=== PATIENT | male | born 1970 | race Caucasian/White ===

== ENCOUNTER 2022-03-14 21:49 | Emergency (ER) | payer MEDICAID, SELFPAY ==
--- NOTE | ~2022-03-14 | XR_ITS ---
EXAMINATION: XR CHEST CLINICAL INFORMATION: Chest pain. COMPARISON: None TECHNIQUE: Frontal view of the chest was obtained. FINDINGS: No significant abnormality is noted involving the heart, lungs, mediastinum, bony thorax or soft tissues. XR/XR chest 1V IMPRESSION: No acute cardiopulmonary process.
--- NOTE | 2022-03-14 21:51 | ECG_ITS ---
Test Reason : CHEST PAIN Blood Pressure : / mmHG Vent. Rate : 093 BPM Atrial Rate : 093 BPM P-R Int : 184 ms QRS Dur : 086 ms QT Int : 352 ms P-R-T Axes : 031 -08 -04 degrees QTc Int : 437 ms Normal sinus rhythm Cannot rule out Anterior infarct , age undetermined Abnormal ECG No previous ECGs available Referred By: Generic ED Physician Electronically Signed By:Joey Maddox
[2022-03-14 21:52] VITALS: BP 133/82; PULSE 89; RESP 18; TEMP 36.4; O2SAT 99; BMI 27.9
[2022-03-14 22:08] LABS: MANUAL DIFF FLAG NO
[2022-03-14 22:10] LABS: Basophils Percent Auto 0.5 % (0-2); Eosinophils Absolute Auto 0.2 X10*3/uL (0.0-0.4); Eosinophils Percent Auto 2.2 % (0-4); Hematocrit 41.2 % (42.0-52.0); Hemoglobin 14.8 g/dl (14.0-18.0); Imm Gran Abs Auto 0.06 X10*3/uL (0.00-0.03); Imm Gran Pct Auto 0.8 % (0.0-0.4); Lymphocytes Absolute Auto 3.1 X10*3/uL (1.2-4.9); Mean Corpuscular HGB Conc 35.9 g/dl (31.0-36.0); Mean Corpuscular Hemoglobin 32.2 pg (27.0-33.0); Mean Corpuscular Volume 89.6 fL (80.0-98.0); Monocytes Absolute Auto 0.5 X10*3/uL (0.1-1.2); Monocytes Percent Auto 7.1 % (2-11); Neutrophils Absolute Auto 3.7 x10*3/uL (2.0-8.3); Neutrophils Percent Auto 48.4 % (45-73); Platelet Count 246 X10*3/uL (160-400); Red Cell Distribution Width 11.9 % (11.0-16.0); White Blood Count 7.7 X10*3/uL (4.8-10.8)
[2022-03-14 22:23] LABS: Anion Gap 15 (12-20); Blood Urea Nitrogen 16 mg/dL (9-16); Calcium 9.3 mg/dL (8.4-10.2); Carbon Dioxide 24 mmol/L (22-29); Chloride 103 mmol/L (96-108); Creatinine Clr Calc Pharmacy 113.8; Estimated Glomerular Filt Rate > 60; Glucose Random 109 mg/dL (60-115); Potassium 2.9 mmol/L (3.3-5.1); Sodium 139 mmol/L (135-145)
[2022-03-14 22:38] LABS: Troponin-I High Sensitivity < 3.5 ng/L (<3.5-35.0)
--- NOTE | 2022-03-14 22:51 | ED.CHESTPAIN ---
HPI - Chest Pain General Chief Complaint: Chest Pain Stated Complaint: chest pain Time Seen by Provider: 03/14/22 22:49 Source: patient Mode of arrival: ambulatory Limitations: no limitations History of Present Illness HPI narrative: Patient with History of mild hypertension on metoprolol 25 mg daily history of chronic chest pain for months, was asked to hold metoprolol as he scheduled for stress test tomorrow just prior to arrival while watching TV patient noticed heart was beating fast and irregular per says between 90-110 felt dizzy and nauseated anxiety started since 10:30 on arrival patient's blood pressure is 133/82 pulse rate 89 patient seems to be anxious no shortness of breath no fever no chills Related Data Allergies Allergy/AdvReac Type Severity Reaction Status Date / Time No Known Allergies Allergy Verified 03/14/22 21:55 Review of Systems Review of Systems: Yes all other systems are reviewed and are negative [facility] Social History Social History Alcohol intake: current Alcohol intake frequency: 0-2 drinks per day Alcohol type: hard liquor Smoked in Last 30 Days: Yes Use of substances other than those prescribed or required for medical reasons: No Advance Directives: No Advance Directives Information Provided: No Physical Exam Vital Signs: Vital Signs: Last Vital Signs Temp 97.6 F 03/14/22 23:07 Pulse 80 03/15/22 00:44 Resp 16 03/15/22 00:44 BP 117/87 03/15/22 00:44 Pulse Ox 98 03/15/22 00:44 O2 Del Method 03/15/22 00:44 BMI result Body Mass Index 27.9 Appearance: Alert. Oriented X3. No acute distress. Anxious Eyes: PERRLA, No Nystagmus ENT: Pharynx normal. Oral Mucosa moist Neck: Normal inspection. Neck supple. CVS: Normal heart rate and rhythm. Pulses normal. Respiratory: No respiratory distress. Equal air entry bilateral, no wheezing/rales/rhonchi Abdomen: Soft and nontender. Bowel sounds are present, no mass palpable, no CVA tenderness Skin: Skin warm and dry. Normal skin color. Normal skin turgor. Extremities: No lower extremity edema. No calf tenderness Neuro: Oriented X 3. No motor deficit. Medications Administered Discontinued Medications Generic Name Dose Route Start Last Admin Trade Name Freq PRN Reason Stop Dose Admin Potassium Bicarbonate 50 meq 03/14/22 23:06 03/14/22 23:15 Potassium Bicarbonate/Cit Ac 25 Meq Tablet.Eff PO 03/14/22 23:07 50 meq ONCE ONE Administration Medical Decision Making Medical Decision Making [facility] Narrative: Patient on chlorthalidone lab workup showed potassium of 2.9 likely the etiology patient had hyperkalemia before when he was on thiazides. During stay in the ER heart rate stays stable patient is scheduled for stress test tomorrow p.o. potassium was given advised to follow-up with PCP to recheck his potassium and to stop chlorthalidone Lab Data [facility] Lab Attestation statement: I reviewed the patient's lab results. 03/14/22 22:04 03/14/22 22:04 Labs: Lab Results 03/14/22 03/14/22 03/14/22 Range/Units 22:04 22:04 22:04 WBC 7.7 (4.8-10.8) X10*3/uL RBC 4.60 (4.60-5.80) X10*6/uL Hgb 14.8 (14.0-18.0) g/dl Hct 41.2 L (42.0-52.0) % MCV 89.6 (80.0-98.0) fL MCH 32.2 (27.0-33.0) pg MCHC 35.9 (31.0-36.0) g/dl RDW 11.9 (11.0-16.0) % Plt Count 246 (160-400) X10*3/uL MPV 9.0 L (9.4-12.4) fL Immature Gran % (Auto) 0.8 H (0.0-0.4) % Neut % (Auto) 48.4 (45-73) % Lymph % (Auto) 41.0 H (20-40) % Charles % (Auto) 7.1 (2-11) % Eos % (Auto) 2.2 (0-4) % Baso % (Auto) 0.5 (0-2) % Lymph # (Auto) 3.1 (1.2-4.9) X10*3/uL Charles # (Auto) 0.5 (0.1-1.2) X10*3/uL Eos # (Auto) 0.2 (0.0-0.4) X10*3/uL Baso # (Auto) 0.0 (0.0-0.2) X10*3/uL Abs Immat Gran (auto) 0.06 H (0.00-0.03) X10*3/uL Absolute Neuts (auto) 3.7 (2.0-8.3) x10*3/uL Absolute Nucleated RBC 0.000 (0.0-0.012) X10*3/uL Nucleated RBC % (auto) 0.0 (0.0-0.2) /100WBC Sodium 139 (135-145) mmol/L Potassium 2.9 L (3.3-5.1) mmol/L Chloride 103 (96-108) mmol/L Carbon Dioxide 24 (22-29) mmol/L Anion Gap 15 (12-20) BUN 16 (9-16) mg/dL Creatinine 0.85 (0.5-1.4) mg/dL Estim Creat Clear Calc 113.8 Estimated GFR > 60 Random Glucose 109 (60-115) mg/dL Calcium 9.3 (8.4-10.2) mg/dL Magnesium 1.8 (1.6-2.6) mg/dL Troponin I High Sens < 3.5 (<3.5-35.0) ng/L Independent Interpretation I performed an independent interpretation of an: EKG Interpretation: Number sinus rhythm heart rate 93 beats per minute no acute ST changes no acute ischemia Discharge Plan Discharge Clinical Impression: Heart palpitations, Hypokalemia Patient Disposition: Home, Self-Care Instructions: Heart Palpitations (ED), Hypokalemia (ED) Additional Instructions: Stop chlorthalidone , likely the cause for low potassium Have extra bananas/ orange juice Recheck potassium in 2 days Interventions: ED Discharge Assessment Last Done: 03/15/22 00:45 Discharge Date/Time: 03/15/22 00:45
[2022-03-14 23:07] VITALS: BP 109/73; PULSE 85; RESP 14; TEMP 36.4; O2SAT 97
[2022-03-14 23:09] VITALS: PULSE 86
[2022-03-14] MEDS: Potassium Bicarbonate/Cit AC 25 MEQ TABLET.EFF 50 MEQ PO (23:15)
[2022-03-14 23:20] LABS: Magnesium 1.8 mg/dL (1.6-2.6)
[2022-03-15 00:04] VITALS: PULSE 80; RESP 15; O2SAT 97
[2022-03-15 00:44] VITALS: BP 117/87; PULSE 80; RESP 16; O2SAT 98
== END 2022-03-15 00:45 | disposition home or self-care (01) ==
PROVIDERS: Emergency Provider Internal Medicine; PCP Internal Medicine
DX: R00.2 Palpitations (principal); E87.6 Hypokalemia; I10 Essential (primary) hypertension; Z79.899 Other long term (current) drug therapy
CPT/HCPCS: 36415; 71045; 80048; 83735; 84484; 85025; 93005; 99283; 99285

== ENCOUNTER 2022-06-14 16:51 | Emergency (ER) | payer OTHER, SELFPAY ==
--- NOTE | ~2022-06-14 | XR_ITS ---
EXAMINATION: XR CHEST CLINICAL INFORMATION: Chest pain COMPARISON: Chest 03/14/2022. TECHNIQUE: Frontal view of the chest was obtained. FINDINGS: No significant abnormality is noted involving the heart, lungs, mediastinum, bony thorax or soft tissues. XR/XR chest 1V IMPRESSION: Unremarkable chest examination.
--- NOTE | 2022-06-14 16:53 | ECG_ITS ---
Test Reason : CHEST PAIN Blood Pressure : / mmHG Vent. Rate : 063 BPM Atrial Rate : 063 BPM P-R Int : 194 ms QRS Dur : 092 ms QT Int : 404 ms P-R-T Axes : 018 -11 -09 degrees QTc Int : 413 ms Normal sinus rhythm Minimal voltage criteria for LVH, may be normal variant ( R in aVL ) Borderline ECG When compared with ECG of 14-MAR-2022 21:57, No significant change was found Referred By: Mookie Trinidad Electronically Signed By:MARÍA JACOME MD
[2022-06-14 17:03] VITALS: BP 156/103; PULSE 67; RESP 18; TEMP 36.6; O2SAT 98; BMI 63.3
--- NOTE | 2022-06-14 17:03 | ED.CHESTPAIN ---
HPI - Chest Pain General Chief Complaint: Chest Pain <KATHLEEN La - Last Filed: 06/14/22 17:04> Stated Complaint: cheat pain, referral from Dr. Andrade <KATHLEEN La - Last Filed: 06/14/22 17:04> Time Seen by Provider: 06/14/22 17:55 <KATHLEEN La - Last Filed: 06/14/22 17:04> Source: patient <Atif Washington MD - Last Filed: 06/14/22 18:44> Mode of arrival: ambulatory <Atif Washington MD - Last Filed: 06/14/22 18:44> Limitations: no limitations <Atif Washington MD - Last Filed: 06/14/22 18:44> History of Present Illness HPI narrative: 51-year-old male with history of hypertension who presents emergency department for evaluation pounding sensation in his chest, lightheadedness, dizziness, headache and elevated blood pressure. Patient states that his hypertension is managed by Cardiology. He states that he saw a new angiography nurse on 06/07/2022[facility] and his propanolol 50 mg daily was changed to carvedilol 62.5 mg twice a day. Patient states states that his doctor increased his carvedilol to 12.5 mg twice a day. Patient states that since starting the propanolol he has had episodes of heart pounding sensation, lightheadedness, dizziness and headaches. He states that his blood pressure normally runs around 150/100 and today's blood pressure was 160/120. He spoke to his angiography nurse office and they advised him to go to the emergency department for evaluation. <Atif Washington MD - Last Filed: 06/14/22 18:44> Related Data Allergies/Adverse Reactions: Allergies Allergy/AdvReac Type Severity Reaction Status Date / Time No Known Allergies Allergy Verified 03/14/22 21:55 <KATHLEEN La - Last Filed: 06/14/22 17:04> Review of Systems Review of Systems: Yes all other systems are reviewed and are negative <Atif Washington MD - Last Filed: 06/14/22 18:44> FOR[facility]LY [facility] Past Medical History [facility] Narrative: Past medical history: Hypertension, palpitations. Cap history: He smokes 3/4 cigarettes per day times 25 years. Drinks 2 vodka drinks per day. He denies drug use. <Atif Washington MD - Last Filed: 06/14/22 18:44> Social History Social History: Social History Alcohol intake: current Alcohol intake frequency: 0-2 drinks per day Alcohol type: hard liquor Advance Directives: No Advance Directives Information Provided: No <KATHLEEN La - Last Filed: 06/14/22 17:04> Physical Exam Vital Signs: Vital Signs: Last Vital Signs Temp 98 F 06/14/22 17:03 Pulse 67 06/14/22 17:03 Resp 18 06/14/22 17:03 BP 156/103 H 06/14/22 17:03 Pulse Ox 98 06/14/22 17:03 O2 Del Method Room Air 06/14/22 17:03 BMI result Body Mass Index 63.3 <KATHLEEN La - Last Filed: 06/14/22 17:04> Vital Signs: Last Vital Signs Temp 98 F 06/14/22 17:03 Pulse 67 06/14/22 17:03 Resp 18 06/14/22 17:03 BP 156/103 H 06/14/22 17:03 Pulse Ox 98 06/14/22 17:03 O2 Del Method Room Air 06/14/22 17:03 BMI result Body Mass Index 63.3 <Atif Washington MD - Last Filed: 06/14/22 18:44> Const: General: cooperative and no acute distress <Atif Washington MD - Last Filed: 06/14/22 18:44> Orientation/consciousness: oriented to person and oriented to place <Atif Washington MD - Last Filed: 06/14/22 18:44> Limitations: no limitations <Atif Washington MD - Last Filed: 06/14/22 18:44> HEENT: Head: Yes normal to inspection, Yes normocephalic and Yes atraumatic <Atif Washington MD - Last Filed: 06/14/22 18:44> Ears: external ears normal <MD Radha Rodriguez Last Filed: 06/14/22 18:44> General nose exam: Normal external nose present <MD Radha Rodriguez Last Filed: 06/14/22 18:44> Face and sinus: Yes normal facial exam <Atif Washington MD - Last Filed: 06/14/22 18:44> Mouth: Normal oral and palatal mucosa present <MD Radha Rodriguez Last Filed: 06/14/22 18:44> Throat: Yes posterior oropharynx normal <MD Radha Rodriguez Last Filed: 06/14/22 18:44> Eyes: General: appearance normal, both eyes and all related structures <Atif Washingtno MD - Last Filed: 06/14/22 18:44> Pupils: Equal, round and reactive pupils present <MD Radha Rodriguez Last Filed: 06/14/22 18:44> Neck: Neck: Yes normal visual inspection, Yes no lymphadenopathy, Yes trachea midline and Yes supple <MD Radha Rodriguez Last Filed: 06/14/22 18:44> Chest: Chest palpation & inspection: normal inspection of the chest and normal palpation of entire chest wall <MD Radha Rodriguez Last Filed: 06/14/22 18:44> Resp: Effort & Inspection: normal respiratory effort and able to speak in complete sentences <MD Radha Rodriguez Last Filed: 06/14/22 18:44> Auscultation: clear to auscultation bilaterally <MD Radha Rodriguez Last Filed: 06/14/22 18:44> Cardio: Rate: regular rate <MD Radha Rodriguez Last Filed: 06/14/22 18:44> Rhythm: regular rhythm <MD Radha Rodriguez Last Filed: 06/14/22 18:44> Heart sounds: S1 normal heart sound present, S2 normal heart sound present and no murmurs <MD Radha Rodriguez Last Filed: 06/14/22 18:44> GI: Inspection: Yes normal to inspection <Atif Washington MD - Last Filed: 06/14/22 18:44> Palpation (GI): Soft to palpation, nontender and no guarding <Atif Washington MD - Last Filed: 06/14/22 18:44> Auscultation: normal bowel sounds <Atif Washington MD - Last Filed: 06/14/22 18:44> : General: Yes no CVA tenderness <Atif Washington MD - Last Filed: 06/14/22 18:44> Back/Spine/Pelvis: Back: no CVA tenderness <Atif Washington MD - Last Filed: 06/14/22 18:44> Skin: General skin exam: no rashes or lesions noted <Atif Washington MD - Last Filed: 06/14/22 18:44> Neuro: General: oriented to person and oriented to place <Atif Washington MD - Last Filed: 06/14/22 18:44> Cranial nerves: Yes CN's II-XII intact bilaterally and Yes Equal, round and reactive pupils present <Atif Washington MD - Last Filed: 06/14/22 18:44> Cognition (Neuro): normal cognition <Atif Washington MD - Last Filed: 06/14/22 18:44> Motor exam (neuro): 5/5 motor strength present throughout <Atif Washington MD - Last Filed: 06/14/22 18:44> Extrem: General: Yes normal to inspection <Atif Washington MD - Last Filed: 06/14/22 18:44> Psych: Appearance: grossly normal <Atif Washington MD - Last Filed: 06/14/22 18:44> Speech and movement: Normal speech and movement present <Atif Washington MD - Last Filed: 06/14/22 18:44> Affect: normal affect <Atif Washington MD - Last Filed: 06/14/22 18:44> Course Course Course Narrative: This is an RME: Additional HPI, ROS, PE not included below will be deferred to primary provider. this is a 51-year-old male presenting for evaluation of chest pain Substernal, nonradiating 2/10 pressure, headache, dizziness status post starting new medication, patient about a week ago was changed from metoprolol to carvedilol, he reports he has also been having high blood pressures at home. At home BP 160/120 PE benign Plan - labs, ekg <KATHLEEN La - Last Filed: 06/14/22 17:04> Medical Decision Making Medical Decision Making [facility] Narrative: 51-year-old male with history of hypertension and palpitations who recently size angiography nurse on 06/07/2022 who changed his propanolol to carvedilol 6.25 mg b.i.d.. The dose was recently increased to 12.5 mg b.i.d. since being on the medication he has been feeling palpitations which she describes as a pounding sensation, dizziness and headaches. His blood pressure was elevated today of 160/120. He states he is taking his blood pressure 3 times a day. At the time my evaluation, patient was asymptomatic his blood pressure was 156/103 with a normal pulse of 67. His physical examination was unremarkable pain. Provider at triage ordered a CBC, CMP, BNP, magnesium, troponin, 12 EKG and one-view chest x-ray. 1827: My interpretation patient's laboratory evaluation as follows: CBC was normal. CMP was normal. High sensitive troponin I was below detectable limits. COVID-19 was negative. Twelve EKG was unremarkable with no ischemia or injury pattern noted. Chest x-ray revealed no acute findings. <Atif Washington MD - Last Filed: 06/14/22 18:44> Differential Diagnosis Differential diagnosis includes but is not limited to STEMI, NSTEMI, palpitations, arrhythmia, anemia, electrolyte abnormalities, viral syndrome <Atif Washington MD - Last Filed: 06/14/22 18:44> Admission/Observation Consideration of admission/observation: Escalation of care including admission/observation considered <Atif Washington MD - Last Filed: 06/14/22 18:44> Lab Data [facility] Lab Attestation statement: I reviewed the patient's lab results. <Atif Washington MD - Last Filed: 06/14/22 18:44> Please see MDM <Atif Washington MD - Last Filed: 06/14/22 18:44> Result Diagrams: 06/14/22 17:42 06/14/22 17:42 <KATHLEEN La - Last Filed: 06/14/22 17:04> Labs: Lab Results 06/14/22 06/14/22 06/14/22 Range/Units 17:42 17:42 17:42 WBC 7.0 (4.8-10.8) X10*3/uL RBC 4.52 L (4.60-5.80) X10*6/uL Hgb 14.5 (14.0-18.0) g/dl Hct 41.8 L (42.0-52.0) % MCV 92.5 (80.0-98.0) fL MCH 32.1 (27.0-33.0) pg MCHC 34.7 (31.0-36.0) g/dl RDW 11.8 (11.0-16.0) % Plt Count 227 (160-400) X10*3/uL MPV 9.5 (9.4-12.4) fL Immature Gran % (Auto) 0.6 H (0.0-0.4) % Neut % (Auto) 53.7 (45-73) % Lymph % (Auto) 35.6 (20-40) % Toole % (Auto) 7.0 (2-11) % Eos % (Auto) 2.7 (0-4) % Baso % (Auto) 0.4 (0-2) % Lymph # (Auto) 2.5 (1.2-4.9) X10*3/uL Toole # (Auto) 0.5 (0.1-1.2) X10*3/uL Eos # (Auto) 0.2 (0.0-0.4) X10*3/uL Baso # (Auto) 0.0 (0.0-0.2) X10*3/uL Abs Immat Gran (auto) 0.04 H (0.00-0.03) X10*3/uL Absolute Neuts (auto) 3.8 (2.0-8.3) x10*3/uL Absolute Nucleated RBC 0.000 (0.0-0.012) X10*3/uL Nucleated RBC % (auto) 0.0 (0.0-0.2) /100WBC Sodium 144 (135-145) mmol/L Potassium 3.8 D (3.3-5.1) mmol/L Chloride 109 H (96-108) mmol/L Carbon Dioxide 26 (22-29) mmol/L Anion Gap 13 (12-20) BUN 17 H (9-16) mg/dL Creatinine 0.99 (0.5-1.4) mg/dL Estim Creat Clear Calc 152.8 Estimated GFR > 60 Random Glucose 80 (60-115) mg/dL Calcium 9.1 (8.4-10.2) mg/dL Magnesium 1.9 (1.6-2.6) mg/dL Total Bilirubin 0.7 (0.0-1.0) mg/dL AST 26 (5-37) U/L ALT 28 (0-40) U/L Alkaline Phosphatase 72 (39-117) U/L B-Natriuretic Peptide 21 (<100) pg/mL Total Protein 6.6 (6.5-8.0) g/dL Albumin 4.3 (3.5-5.0) g/dL COVID-19 (EFE) (Negative) COVID-19 Clin Com 06/14/22 Range/Units 17:42 WBC (4.8-10.8) X10*3/uL RBC (4.60-5.80) X10*6/uL Hgb (14.0-18.0) g/dl Hct (42.0-52.0) % MCV (80.0-98.0) fL MCH (27.0-33.0) pg MCHC (31.0-36.0) g/dl RDW (11.0-16.0) % Plt Count (160-400) X10*3/uL MPV (9.4-12.4) fL Immature Gran % (Auto) (0.0-0.4) % Neut % (Auto) (45-73) % Lymph % (Auto) (20-40) % Toole % (Auto) (2-11) % Eos % (Auto) (0-4) % Baso % (Auto) (0-2) % Lymph # (Auto) (1.2-4.9) X10*3/uL Toole # (Auto) (0.1-1.2) X10*3/uL Eos # (Auto) (0.0-0.4) X10*3/uL Baso # (Auto) (0.0-0.2) X10*3/uL Abs Immat Gran (auto) (0.00-0.03) X10*3/uL Absolute Neuts (auto) (2.0-8.3) x10*3/uL Absolute Nucleated RBC (0.0-0.012) X10*3/uL Nucleated RBC % (auto) (0.0-0.2) /100WBC Sodium (135-145) mmol/L Potassium (3.3-5.1) mmol/L Chloride (96-108) mmol/L Carbon Dioxide (22-29) mmol/L Anion Gap (12-20) BUN (9-16) mg/dL Creatinine (0.5-1.4) mg/dL Estim Creat Clear Calc Estimated GFR Random Glucose (60-115) mg/dL Calcium (8.4-10.2) mg/dL Magnesium (1.6-2.6) mg/dL Total Bilirubin (0.0-1.0) mg/dL AST (5-37) U/L ALT (0-40) U/L Alkaline Phosphatase (39-117) U/L B-Natriuretic Peptide (<100) pg/mL Total Protein (6.5-8.0) g/dL Albumin (3.5-5.0) g/dL COVID-19 (EFE) Negative (Negative) COVID-19 Clin Com See Note <KATHLEEN La - Last Filed: 06/14/22 17:04> Lab Results 06/14/22 06/14/22 06/14/22 Range/Units 17:42 17:42 17:42 WBC 7.0 (4.8-10.8) X10*3/uL RBC 4.52 L (4.60-5.80) X10*6/uL Hgb 14.5 (14.0-18.0) g/dl Hct 41.8 L (42.0-52.0) % MCV 92.5 (80.0-98.0) fL MCH 32.1 (27.0-33.0) pg MCHC 34.7 (31.0-36.0) g/dl RDW 11.8 (11.0-16.0) % Plt Count 227 (160-400) X10*3/uL MPV 9.5 (9.4-12.4) fL Immature Gran % (Auto) 0.6 H (0.0-0.4) % Neut % (Auto) 53.7 (45-73) % Lymph % (Auto) 35.6 (20-40) % Toole % (Auto) 7.0 (2-11) % Eos % (Auto) 2.7 (0-4) % Baso % (Auto) 0.4 (0-2) % Lymph # (Auto) 2.5 (1.2-4.9) X10*3/uL Toole # (Auto) 0.5 (0.1-1.2) X10*3/uL Eos # (Auto) 0.2 (0.0-0.4) X10*3/uL Baso # (Auto) 0.0 (0.0-0.2) X10*3/uL Abs Immat Gran (auto) 0.04 H (0.00-0.03) X10*3/uL Absolute Neuts (auto) 3.8 (2.0-8.3) x10*3/uL Absolute Nucleated RBC 0.000 (0.0-0.012) X10*3/uL Nucleated RBC % (auto) 0.0 (0.0-0.2) /100WBC Sodium 144 (135-145) mmol/L Potassium 3.8 D (3.3-5.1) mmol/L Chloride 109 H (96-108) mmol/L Carbon Dioxide 26 (22-29) mmol/L Anion Gap 13 (12-20) BUN 17 H (9-16) mg/dL Creatinine 0.99 (0.5-1.4) mg/dL Estim Creat Clear Calc 152.8 Estimated GFR > 60 Random Glucose 80 (60-115) mg/dL Calcium 9.1 (8.4-10.2) mg/dL Magnesium 1.9 (1.6-2.6) mg/dL Total Bilirubin 0.7 (0.0-1.0) mg/dL AST 26 (5-37) U/L ALT 28 (0-40) U/L Alkaline Phosphatase 72 (39-117) U/L B-Natriuretic Peptide 21 (<100) pg/mL Total Protein 6.6 (6.5-8.0) g/dL Albumin 4.3 (3.5-5.0) g/dL COVID-19 (EFE) (Negative) COVID-19 Clin Com 06/14/22 Range/Units 17:42 WBC (4.8-10.8) X10*3/uL RBC (4.60-5.80) X10*6/uL Hgb (14.0-18.0) g/dl Hct (42.0-52.0) % MCV (80.0-98.0) fL MCH (27.0-33.0) pg MCHC (31.0-36.0) g/dl RDW (11.0-16.0) % Plt Count (160-400) X10*3/uL MPV (9.4-12.4) fL Immature Gran % (Auto) (0.0-0.4) % Neut % (Auto) (45-73) % Lymph % (Auto) (20-40) % Toole % (Auto) (2-11) % Eos % (Auto) (0-4) % Baso % (Auto) (0-2) % Lymph # (Auto) (1.2-4.9) X10*3/uL Toole # (Auto) (0.1-1.2) X10*3/uL Eos # (Auto) (0.0-0.4) X10*3/uL Baso # (Auto) (0.0-0.2) X10*3/uL Abs Immat Gran (auto) (0.00-0.03) X10*3/uL Absolute Neuts (auto) (2.0-8.3) x10*3/uL Absolute Nucleated RBC (0.0-0.012) X10*3/uL Nucleated RBC % (auto) (0.0-0.2) /100WBC Sodium (135-145) mmol/L Potassium (3.3-5.1) mmol/L Chloride (96-108) mmol/L Carbon Dioxide (22-29) mmol/L Anion Gap (12-20) BUN (9-16) mg/dL Creatinine (0.5-1.4) mg/dL Estim Creat Clear Calc Estimated GFR Random Glucose (60-115) mg/dL Calcium (8.4-10.2) mg/dL Magnesium (1.6-2.6) mg/dL Total Bilirubin (0.0-1.0) mg/dL AST (5-37) U/L ALT (0-40) U/L Alkaline Phosphatase (39-117) U/L B-Natriuretic Peptide (<100) pg/mL Total Protein (6.5-8.0) g/dL Albumin (3.5-5.0) g/dL COVID-19 (EFE) Negative (Negative) COVID-19 Clin Com See Note <Atif Washington MD - Last Filed: 06/14/22 18:44> Independent Interpretation I performed an independent interpretation of an: Plain X-Ray <Atif Washington MD - Last Filed: 06/14/22 18:44> Interpretation: My independent interpretation of the patient's chest x-ray is no acute disease. My independent interpretation patient's 12 EKG done at 17:44 is as follows: Normal sinus rhythm rate of 63, normal MT, QRS and QTC intervals, inverted T-wave in lead 3, no ST segment elevation, no ST segment depression, no PACs, no PVCs. Compared to EKG dated 03/14/2022 inverted T-wave his present in lead 3, there are no acute changes. <Atif Washington MD - Last Filed: 06/14/22 18:44> Radiology Impression Discussion of test interpretation with radiology: I have reviewed the radiologist's reading. <Atif Washington MD - Last Filed: 06/14/22 18:44> Discharge Plan Discharge Clinical Impression: Hypertension, Heart palpitations <KATHLEEN La - Last Filed: 06/14/22 17:04> Patient Disposition: Home, Self-Care <KATHLEEN La Last Filed: 06/14/22 17:04> Instructions: Heart Palpitations (ED) <KATHLEEN La - Last Filed: 06/14/22 17:04> Additional Instructions: Your 12 EKG was unremarkable. There is no evidence suggests that your having a heart attack based on this EKG. Your chest x-ray was normal. Your laboratory evaluation was normal including a nondetectable troponin (marker of heart damage/heart attack) Continue taking your carvedilol as prescribed by your provider. It often takes 2-4 weeks for blood pressure medications to help control your blood pressure. You should call your doctor tomorrow and ask them if they want to increase this medication or wait and see how your blood pressure response. Also, you can discuss with your doctor if they think your headache, lightheadedness and palpitations are related to the new medication. Consider changing the way you take your blood pressure to 3 times a week. Take your blood pressures in the morning on Mondays, Wednesdays and Sunday then write these blood pressures down and show them to your doctor at your next visit. Follow-up with your doctor in 2 days. Please return to the emergency department if your symptoms get worse or if you develop any symptoms that are concerning to you. <KATHLEEN La - Last Filed: 06/14/22 17:04>
[2022-06-14 17:54] LABS: Basophils Percent Auto 0.4 % (0-2); Eosinophils Absolute Auto 0.2 X10*3/uL (0.0-0.4); Eosinophils Percent Auto 2.7 % (0-4); Hematocrit 41.8 % (42.0-52.0); Hemoglobin 14.5 g/dl (14.0-18.0); Imm Gran Abs Auto 0.04 X10*3/uL (0.00-0.03); Imm Gran Pct Auto 0.6 % (0.0-0.4); Lymphocytes Absolute Auto 2.5 X10*3/uL (1.2-4.9); Lymphocytes Percent Auto 35.6 % (20-40); MANUAL DIFF FLAG NO; Mean Corpuscular HGB Conc 34.7 g/dl (31.0-36.0); Mean Corpuscular Hemoglobin 32.1 pg (27.0-33.0); Mean Corpuscular Volume 92.5 fL (80.0-98.0); Mean Platelet Volume 9.5 fL (9.4-12.4); Monocytes Absolute Auto 0.5 X10*3/uL (0.1-1.2); Neutrophils Absolute Auto 3.8 x10*3/uL (2.0-8.3); Neutrophils Percent Auto 53.7 % (45-73); Platelet Count 227 X10*3/uL (160-400); Red Blood Count 4.52 X10*6/uL (4.60-5.80); Red Cell Distribution Width 11.8 % (11.0-16.0)
[2022-06-14 18:09] LABS: COVID-19 Test Negative (Negative); IDNOW Serial# 08D9AD1C
[2022-06-14 18:12] LABS: Alanine Aminotransferase 28 U/L (0-40); Albumin Level 4.3 g/dL (3.5-5.0); Alkaline Phosphatase 72 U/L (39-117); Anion Gap 13 (12-20); Aspartate Amino Transferase 26 U/L (5-37); Bilirubin Total 0.7 mg/dL (0.0-1.0); Blood Urea Nitrogen 17 mg/dL (9-16); Calcium 9.1 mg/dL (8.4-10.2); Carbon Dioxide 26 mmol/L (22-29); Chloride 109 mmol/L (96-108); Creatinine Clr Calc Pharmacy 152.8; Estimated Glomerular Filt Rate > 60; Glucose Random 80 mg/dL (60-115); Magnesium 1.9 mg/dL (1.6-2.6); Potassium 3.8 mmol/L (3.3-5.1); Sodium 144 mmol/L (135-145); Total Protein 6.6 g/dL (6.5-8.0)
[2022-06-14 18:18] LABS: B Type Natriuretic Peptide 21 pg/mL (<100)
[2022-06-14 18:22] LABS: Troponin-I High Sensitivity < 2.7 ng/L (<3.5-35.0)
== END 2022-06-14 19:08 | disposition home or self-care (01) ==
PROVIDERS: Physician Assistant; Emergency Provider Emergency Medicine Emergency Medical Services; PCP Internal Medicine
DX: I10 Essential (primary) hypertension (principal); R00.2 Palpitations; Z20.822 Contact with and (suspected) exposure to COVID-19; Z79.899 Other long term (current) drug therapy
CPT/HCPCS: 71045; 80053; 83735; 83880; 84484; 85025; 87635; 93005; 99283

== ENCOUNTER 2023-11-04 01:55 | Emergency (ER) | payer OTHER, SELFPAY ==
[2023-11-04 02:03] VITALS: BP 139/98; PULSE 62; RESP 18; TEMP 36.5; O2SAT 97; BMI 29.4
--- NOTE | 2023-11-04 02:11 | ECG_ITS ---
Test Reason : CHEST PAIN Blood Pressure : / mmHG Vent. Rate : 057 BPM Atrial Rate : 057 BPM P-R Int : 196 ms QRS Dur : 094 ms QT Int : 416 ms P-R-T Axes : 012 -10 -04 degrees QTc Int : 404 ms Sinus bradycardia Cannot rule out Anterior infarct , age undetermined Abnormal ECG When compared with ECG of 14-JUN-2022 17:44, No significant change was found Referred By: Generic ED Physician Electronically Signed By:RAFY SILVA
--- NOTE | 2023-11-04 02:31 | ED_ITS ---
HPI - General Adult General Chief complaint: General Medical Stated complaint: high blood pressure Time Seen by Provider: 11/04/23 02:26 Source: patient Mode of arrival: ambulatory Limitations: no limitations History of Present Illness ED Provider: Dr. Werner HPI narrative: Patient is 53 with HTN who is on amliodipine, losartan, and metoprolol. HIs amlodipine was changed from 10mg to 5mg and since then he has had palpitations and feels shakey. Onset (ago): hour(s) Severity: mild Related Data Allergies Allergy/AdvReac Type Severity Reaction Status Date / Time lisinopril Allergy Cough Verified 11/04/23 02:03 Review of Systems 2 Review of Systems: Yes all other systems are reviewed and are negative Neurologic: Denies Sensory deficit (Neuro) [facility] Social History Social History Alcohol intake: current Alcohol intake frequency: 0-2 drinks per day Alcohol type: hard liquor Advance Directives: No Advance Directives Information Provided: Yes Do you have a plan to hurt others: No Plan Physical Exam ED Vital Signs: Vital Signs - 24 hr 11/04/23 02:03 Temperature 97.7 F Pulse Rate 62 Respiratory Rate 18 Blood Pressure 139/98 H Pulse Oximetry 97 Oxygen Delivery Method Room Air BMI result Body Mass Index 29.4 Const Other: anxious General: healthy appearing Nutritional Appearance: average body habitus Orientation/consciousness: oriented to person and patient oriented x3 Limitations: no limitations HENMT Head: Yes normal to inspection Ears: external ears normal General nose exam: Normal external nose present Mouth: Normal oral and palatal mucosa present and oropharynx normal Throat: Yes posterior oropharynx normal Eyes General: appearance normal, both eyes and all related structures Neck Neck: Yes normal visual inspection Chest Chest palpation & inspection: normal inspection of the chest Resp Auscultation: clear to auscultation bilaterally Cardio Jugular venous distension: no JVD Rate: regular rate Rhythm: regular rhythm Heart sounds: S1 normal heart sound present and S2 normal heart sound present GI Inspection: Yes normal to inspection Palpation (GI): Soft to palpation, nontender and No hepatosplenomegaly present Auscultation: normal bowel sounds General: Yes no CVA tenderness Back/Spine/Pelvis Back: no CVA tenderness Skin General skin exam: no rashes or lesions noted Neuro General: oriented to person and patient oriented x3 Cranial nerves: Yes CN's II-XII intact bilaterally Motor exam (neuro): 5/5 motor strength present throughout Sensory Exam: No Sensory deficit (Neuro) Extrem General: Yes normal to inspection Psych Appearance: grossly normal Course Reevaluation(s) Reevaluation #1: EKG with no arrythmia, troponin negative, patient not hypertensive will dc home Medical Decision Making Differential Diagnosis Differential Diagnoses: The differential diagnosis associated with the presentation includes (palpitations, arrhythmia, CAD, anxiety were all considered) Admission/Observation Consideration of admission/observation: Escalation of care including admission/observation considered (upon arrival patient considered for admission) Lab Data 11/04/23 02:38 11/04/23 02:38 Labs: Lab Results 11/04/23 Range/Units 02:38 WBC 5.9 (4.8-10.8) X10*3/uL RBC 4.35 L (4.60-5.80) X10*6/uL Hgb 14.5 (14.0-18.0) g/dl Hct 40.0 L (42.0-52.0) % MCV 92.0 (80.0-98.0) fL MCH 33.3 H (27.0-33.0) pg MCHC 36.3 H (31.0-36.0) g/dl RDW 12.2 (11.0-16.0) % Plt Count 195 (160-400) X10*3/uL MPV 8.9 L (9.4-12.4) fL Immature Gran % (Auto) 0.3 (0.0-0.4) % Neut % (Auto) 44.8 L (45-73) % Lymph % (Auto) 43.1 H (20-40) % [place] % (Auto) 8.3 (2-11) % Eos % (Auto) 3.0 (0-4) % Baso % (Auto) 0.5 (0-2) % Lymph # (Auto) 2.6 (1.2-4.9) X10*3/uL [place] # (Auto) 0.5 (0.1-1.2) X10*3/uL Eos # (Auto) 0.2 (0.0-0.4) X10*3/uL Baso # (Auto) 0.0 (0.0-0.2) X10*3/uL Abs Immat Gran (auto) 0.02 (0.00-0.03) X10*3/uL Absolute Neuts (auto) 2.6 (2.0-8.3) x10*3/uL Absolute Nucleated RBC 0.000 (0.0-0.012) X10*3/uL Nucleated RBC % (auto) 0.0 (0.0-0.2) /100WBC Sodium 140 (135-145) mmol/L Potassium 3.5 (3.3-5.1) mmol/L Chloride 109 H (96-108) mmol/L Carbon Dioxide 22 (22-29) mmol/L Anion Gap 13 (12-20) BUN 15 (9-16) mg/dL Creatinine 0.93 (0.5-1.4) mg/dL Estim Creat Clear Calc 103.9 Estimated GFR > 60 Random Glucose 97 (60-115) mg/dL Calcium 9.0 (8.4-10.2) mg/dL Total Bilirubin 0.5 (0.0-1.0) mg/dL AST 27 (5-37) U/L ALT 34 (0-40) U/L Alkaline Phosphatase 75 (39-117) U/L Troponin I High Sens < 2.7 (<3.5-35.0) ng/L Total Protein 6.5 (6.5-8.0) g/dL Albumin 4.1 (3.5-5.0) g/dL Independent Interpretation I performed an independent interpretation of an: EKG (sinus 57, inferior wall flipped ts) External Record Review External record reviewed: Outpatient record Chronic Conditions Patient?s care impacted by: Hypertension Discharge Plan Discharge Clinical Impression: Heart palpitations Patient Disposition: Left W/O Completing Treatment Discharge Date/Time: 11/04/23 05:29
[2023-11-04 02:43] LABS: Basophils Percent Auto 0.5 % (0-2); Eosinophils Absolute Auto 0.2 X10*3/uL (0.0-0.4); Hemoglobin 14.5 g/dl (14.0-18.0); Imm Gran Abs Auto 0.02 X10*3/uL (0.00-0.03); Imm Gran Pct Auto 0.3 % (0.0-0.4); Lymphocytes Absolute Auto 2.6 X10*3/uL (1.2-4.9); Lymphocytes Percent Auto 43.1 % (20-40); MANUAL DIFF FLAG NO; Mean Corpuscular HGB Conc 36.3 g/dl (31.0-36.0); Mean Corpuscular Hemoglobin 33.3 pg (27.0-33.0); Mean Platelet Volume 8.9 fL (9.4-12.4); Monocytes Absolute Auto 0.5 X10*3/uL (0.1-1.2); Monocytes Percent Auto 8.3 % (2-11); Neutrophils Absolute Auto 2.6 x10*3/uL (2.0-8.3); Neutrophils Percent Auto 44.8 % (45-73); Platelet Count 195 X10*3/uL (160-400); Red Blood Count 4.35 X10*6/uL (4.60-5.80); Red Cell Distribution Width 12.2 % (11.0-16.0); White Blood Count 5.9 X10*3/uL (4.8-10.8)
[2023-11-04 02:57] LABS: Alanine Aminotransferase 34 U/L (0-40); Albumin Level 4.1 g/dL (3.5-5.0); Alkaline Phosphatase 75 U/L (39-117); Anion Gap 13 (12-20); Aspartate Amino Transferase 27 U/L (5-37); Bilirubin Total 0.5 mg/dL (0.0-1.0); Blood Urea Nitrogen 15 mg/dL (9-16); Carbon Dioxide 22 mmol/L (22-29); Chloride 109 mmol/L (96-108); Creatinine Clr Calc Pharmacy 103.9; Estimated Glomerular Filt Rate > 60; Glucose Random 97 mg/dL (60-115); Potassium 3.5 mmol/L (3.3-5.1); Sodium 140 mmol/L (135-145); Total Protein 6.5 g/dL (6.5-8.0)
[2023-11-04 03:09] LABS: Troponin-I High Sensitivity < 2.7 ng/L (<3.5-35.0)
== END 2023-11-04 05:29 | disposition left against medical advice (07) ==
PROVIDERS: Emergency Provider Emergency Medicine; PCP Internal Medicine
DX: R00.2 Palpitations (principal); Z79.899 Other long term (current) drug therapy
CPT/HCPCS: 36415; 80053; 84484; 85025; 93005; 99283

== ENCOUNTER 2024-01-13 08:32 | Emergency (ER) | payer OTHER, SELFPAY ==
[2024-01-13 08:34] VITALS: BP 134/90; PULSE 77; RESP 20; TEMP 36.4; O2SAT 100; BMI 28.7
--- NOTE | 2024-01-13 08:47 | ECG_ITS ---
Test Reason : HTN Blood Pressure : / mmHG Vent. Rate : 070 BPM Atrial Rate : 070 BPM P-R Int : 206 ms QRS Dur : 088 ms QT Int : 388 ms P-R-T Axes : 024 -12 -08 degrees QTc Int : 419 ms Normal sinus rhythm Normal ECG When compared with ECG of 04-NOV-2023 02:16, No significant change was found Referred By: Isela Hopson Electronically Signed By:Joey Maddox
[2024-01-13 08:54] LABS: Basophils Percent Auto 0.7 % (0-2); Eosinophils Absolute Auto 0.2 X10*3/uL (0.0-0.4); Eosinophils Percent Auto 3.9 % (0-4); Hematocrit 43.8 % (42.0-52.0); Imm Gran Abs Auto 0.03 X10*3/uL (0.00-0.03); Imm Gran Pct Auto 0.5 % (0.0-0.4); Lymphocytes Absolute Auto 1.9 X10*3/uL (1.2-4.9); Lymphocytes Percent Auto 30.9 % (20-40); MANUAL DIFF FLAG NO; Mean Corpuscular HGB Conc 36.5 g/dl (31.0-36.0); Mean Corpuscular Volume 90.3 fL (80.0-98.0); Monocytes Absolute Auto 0.4 X10*3/uL (0.1-1.2); Monocytes Percent Auto 6.4 % (2-11); Neutrophils Absolute Auto 3.5 x10*3/uL (2.0-8.3); Neutrophils Percent Auto 57.6 % (45-73); Platelet Count 237 X10*3/uL (160-400); Red Blood Count 4.85 X10*6/uL (4.60-5.80); Red Cell Distribution Width 11.9 % (11.0-16.0); White Blood Count 6.1 X10*3/uL (4.8-10.8)
--- NOTE | 2024-01-13 08:55 | ED_ITS ---
HPI - General Adult General Chief complaint: General Medical Stated complaint: HBP Time Seen by Provider: 01/13/24 08:47 Source: patient and old records reviewed Mode of arrival: ambulatory Limitations: no limitations History of Present Illness ED Provider: ANEUDY MOYER narrative: 53 yo male with PMH of HTN and heart palpitations here with c/o 2 months of AM HTN this AM wa 150/100 with some dizziness and nausea. He also has nighttime heart racing and palpitations. He is currently on losartan 100mg daily, norvasc 10mg daily and metoprolol 150 ER - uses 100 in AM and 50 at PM. It did help to switch his metoprolol but the same symptoms returned. His BP is now down to 120/80s and feels better. No recent changes or infection. Has not had holter recently and no prior sleep study MD complaint: HTN Onset (ago): month(s) (2) Severity: moderate Pain Consistency: intermittent Relieving factors: medication Exacerbating factors: none Associated symptoms: denies other symptoms Treatments prior to arrival: other Related Data Allergies Allergy/AdvReac Type Severity Reaction Status Date / Time lisinopril Allergy Cough Verified 01/13/24 08:36 Review of Systems 2 Review of Systems: Constitutional : No Fever, No Chills, No Fatigue ENT/Mouth : No sore throat, No Rhinorrhea Eyes: No Eye Pain, No Swelling, No Redness Cardiovascular : No Chest Pain, No SOB, No Dyspnea on Exertion, pos palpitations Respiratory : No Cough, No Sputum Gastrointestinal : pos Nausea, No Vomiting, No Diarrhea, No abdominal Pain Genitourinary : No Dysuria, No Urinary Frequency, No Hematuria, Musculoskeletal : No joint pain, No Myalgias, No Joint Swelling Skin : No Skin Lesions, No rash Neuro : No Weakness, No Numbness, No Dizziness, no Headache All other systems reviewed and are negative [facility] Past Medical History Attestation statement: The following information was validated with the patient. Source: old records reviewed Medical History Heart palpitations Hypertension Social History Social History (Updated 01/13/24 @ 08:57 by Isela Hopson DO) Alcohol intake: current Alcohol intake frequency: 0-2 drinks per day Alcohol type: hard liquor Patient Tobacco Use Status: Never used Tobacco Advance Directives: No Advance Directives Information Provided: Yes Physical Exam ED Vital Signs: Vital Signs - 24 hr 01/13/24 08:34 Temperature 97.6 F Pulse Rate 77 Respiratory Rate 20 Blood Pressure 134/90 H Pulse Oximetry 100 Oxygen Delivery Method Room Air BMI result Body Mass Index 28.7 Appearance: Alert. Oriented X3. No acute distress. Eyes: Pupils equal, round and reactive to light. ENT: Pharynx normal. Neck: Normal inspection. Neck supple. CVS: Normal heart rate and rhythm. Pulses normal. Respiratory: No respiratory distress. Breath sounds normal. Abdomen: Soft and nontender. Skin: Skin warm and dry. Normal skin color. Normal skin turgor. Extremities: No lower extremity edema. No calf ttp Neuro: Oriented X 3. No motor deficit. No sensory deficit. Medical Decision Making Medical Decision Making [facility] Narrative: 53 yo male with PMH of HTN and heart palpitations here with c/o PM heart racing and AM BP - this has been 2 months at this time he is not toxic and asymptomatic now given the duration down ACS/VTE - will switch metoprolol to 75mg BID and follow up for holter and outpatient sleep study Differential Diagnosis Differential Diagnoses: The differential diagnosis associated with the presentation includes HTN, palpitations Admission/Observation Consideration of admission/observation: Escalation of care including admission/observation considered baseline labs stable for DC BP 120/80 Lab Data [facility] Lab Attestation statement: I reviewed the patient's lab results. 01/13/24 08:49 01/13/24 08:49 Labs: Lab Results 01/13/24 Range/Units 08:49 WBC 6.1 (4.8-10.8) X10*3/uL RBC 4.85 (4.60-5.80) X10*6/uL Hgb 16.0 (14.0-18.0) g/dl Hct 43.8 (42.0-52.0) % MCV 90.3 (80.0-98.0) fL MCH 33.0 (27.0-33.0) pg MCHC 36.5 H (31.0-36.0) g/dl RDW 11.9 (11.0-16.0) % Plt Count 237 (160-400) X10*3/uL MPV 9.0 L (9.4-12.4) fL Immature Gran % (Auto) 0.5 H (0.0-0.4) % Neut % (Auto) 57.6 (45-73) % Lymph % (Auto) 30.9 (20-40) % [place] % (Auto) 6.4 (2-11) % Eos % (Auto) 3.9 (0-4) % Baso % (Auto) 0.7 (0-2) % Lymph # (Auto) 1.9 (1.2-4.9) X10*3/uL [place] # (Auto) 0.4 (0.1-1.2) X10*3/uL Eos # (Auto) 0.2 (0.0-0.4) X10*3/uL Baso # (Auto) 0.0 (0.0-0.2) X10*3/uL Abs Immat Gran (auto) 0.03 (0.00-0.03) X10*3/uL Absolute Neuts (auto) 3.5 (2.0-8.3) x10*3/uL Absolute Nucleated RBC 0.000 (0.0-0.012) X10*3/uL Nucleated RBC % (auto) 0.0 (0.0-0.2) /100WBC Sodium 140 (135-145) mmol/L Potassium 3.7 (3.3-5.1) mmol/L Chloride 107 (96-108) mmol/L Carbon Dioxide 23 (22-29) mmol/L Anion Gap 14 (12-20) BUN 17 H (9-16) mg/dL Creatinine 0.99 (0.5-1.4) mg/dL Estim Creat Clear Calc 96.6 Estimated GFR > 60 Random Glucose 123 H (60-115) mg/dL Calcium 9.0 (8.4-10.2) mg/dL Troponin I High Sens < 2.7 (<3.5-35.0) ng/L Independent Interpretation I performed an independent interpretation of an: EKG Interpretation: Rate: 70 Rhythm: NSR [place]: left Normal P waves. Normal ALLEN. Normal QRS complex. ST T wave : inverted T wave III, aVF, V1 qTC: 419 prior studies: no ischemia The study has been interpreted contemporaneously by me. . External Record Review External record reviewed: Outpatient record Prescription Management I considered prescription management with: Other Discharge Plan Discharge Clinical Impression: Heart palpitations HTN (hypertension) Qualifiers: Hypertension type: unspecified Qualified Code(s): I10 - Essential (primary) hypertension Patient Disposition: Home, Self-Care Instructions: Heart Palpitations (ED), Chronic Hypertension (ED) Additional Instructions: labs reassuring and EKG reassuring moving forward starting tomorrow AM take 75mg AM and 75mg PM you will need outpatient sleep study and holter monitor - discuss with PCP 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 Print Language: Wolof
[2024-01-13 09:11] LABS: Anion Gap 14 (12-20); Blood Urea Nitrogen 17 mg/dL (9-16); Carbon Dioxide 23 mmol/L (22-29); Chloride 107 mmol/L (96-108); Creatinine Clr Calc Pharmacy 96.6; Estimated Glomerular Filt Rate > 60; Glucose Random 123 mg/dL (60-115); Potassium 3.7 mmol/L (3.3-5.1); Sodium 140 mmol/L (135-145)
[2024-01-13 09:23] LABS: Troponin-I High Sensitivity < 2.7 ng/L (<3.5-35.0)
[2024-01-13 09:53] VITALS: BP 134/90; PULSE 77; RESP 20; TEMP 36.4; O2SAT 100
== END 2024-01-13 09:57 | disposition home or self-care (01) ==
PROVIDERS: Emergency Provider Emergency Medicine; PCP Internal Medicine
DX: R00.2 Palpitations (principal); I10 Essential (primary) hypertension; Z79.899 Other long term (current) drug therapy
CPT/HCPCS: 36415; 80048; 84484; 85025; 93005; 99283

== ENCOUNTER → 2024-01-13 08:47 | Outpatient (BNV) | payer OTHER, SELFPAY | PROVIDERS: Emergency Provider Emergency Medicine; PCP Internal Medicine; Visit Provider Internal Medicine Cardiovascular Disease | DX: I10 Essential (primary) hypertension (principal) | CPT/HCPCS: 93010 ==